=== PATIENT | male | born 1990 | race Caucasian/White ===

== ENCOUNTER 2022-11-02 19:47 | Emergency (ER) | payer BC, SELFPAY ==
[2022-11-02] MEDS ORDERED: Ketorolac Tromethamine 30 MG/ML VIAL ONE (20:53)
== END 2022-11-02 21:15 | disposition home or self-care (01) ==
LOC: ERS 19:47
DX: M25.512 Pain in left shoulder (principal); E03.9 Hypothyroidism, unspecified; Z79.899 Other long term (current) drug therapy; V00.831A Fall from motorized mobility scooter, initial encounter
CPT/HCPCS: 96372; J1885